=== PATIENT | male | born 1960 | race Caucasian/White ===

== ENCOUNTER 2019-01-08 12:07 | Outpatient (CLI) | payer MEDICARE, MEDICAID ==
--- NOTE | 2019-01-08 15:24 | Diagnostic Imaging Report ---
Indication: Chest pain Technique: 2 views of the chest Comparison: None Findings: Lungs and pleural spaces are clear. The heart size is normal. Old healed right rib fracture deformities are noted. Impression: Negative
== END 2019-01-08 14:07 | disposition home or self-care (01) ==
LOC: RAD 12:07 → SUR 12:07 → RAD 14:07
DX: R07.9 Chest pain, unspecified (principal)
CPT/HCPCS: 71046